=== PATIENT | female | born 1945 | race Caucasian/White ===

== ENCOUNTER 2023-01-10 06:41 | Day surgery (SDC) | payer SELFPAY ==
[2022-12-31 17:13] VITALS: BMI 23.9
[2023-01-10] MEDS ORDERED: LIDOCAINE 1%-EPI 1:100,000 30 ML MDV IJ ONE (07:22)
[2023-01-10] MEDS ORDERED: SODIUM CHLORIDE 0.9% P/F 10 ML VIAL IJ ONE (07:22)
[2023-01-10] MEDS ORDERED: POVIDONE-IODINE 5% OPHTHALMIC PREP 30 ML SOLUTION ONE (07:42)
[2023-01-10] MEDS ORDERED: MIDAZOLAM HCL 2 MG/2 ML SINGLE DOSE VIAL ONE (08:02)
[2023-01-10] MEDS ORDERED: PROPOFOL 20 ML ONE (08:09)
[2023-01-10] MEDS ORDERED: ROCURONIUM BROMIDE 50 MG/5 ML SYRINGE ONE (08:09)
[2023-01-10] MEDS ORDERED: ceFAZolin SODIUM 1 GM VIAL ONE ×2 (09:05)
[2023-01-10] MEDS ORDERED: ONDANSETRON 4 MG/2 ML VIAL ONE ×2 (09:06→13:29)
[2023-01-10] MEDS ORDERED: DEXAMETHASONE SOD PHOSPHATE 4 MG/1 ML VIAL ONE (09:06)
[2023-01-10] MEDS ORDERED: BACITRACIN ZINC 15 GM TUBE TOPICAL OINTMENT ONE (10:41)
[2023-01-10] MEDS ORDERED: ePHEDrine SULFATE 50 MG/1 ML AMPULE ONE (10:47)
[2023-01-10] MEDS ORDERED: ONDANSETRON 4 MG/2 ML VIAL IVPUSH PRN (12:30)
[2023-01-10] MEDS ORDERED: LACTATED RINGERS SOLUTION 1,000 ML IV SCH (12:30)
[2023-01-10] MEDS ORDERED: oxyCODONE HCL 5 MG TABLET PO PRN (12:30)
[2023-01-10] MEDS ORDERED: FENTANYL CITRATE/PF 50 MCG/ML VIAL ONE (13:29)
[2023-01-10] MEDS ORDERED: oxyCODONE HCL 5 MG TABLET ONE (14:53)
[2023-01-10 17:30] VITALS: RESP 17
[2023-01-10 18:29] VITALS: PULSE 84; TEMP 97
[2023-01-10 18:38] VITALS: BP 122/67
== END 2023-01-10 15:55 | disposition home or self-care (01) ==
LOC: FASU 06:41
PROVIDERS: ATTEND Plastic Surgery
CPT/HCPCS: 94760